=== PATIENT | male | born 1970 | race American Indian/Alaskan Native ===

== ENCOUNTER 2018-09-04 14:37 | Emergency (ER) | payer OTHER ==
[2018-09-04 14:38] VITALS: BMI 37.8
[2018-09-04 14:42] VITALS: BP 152/96; PULSE 65; RESP 20; TEMP 98.2; O2SAT 99
--- NOTE | 2018-09-04 15:01 | C.PDOC ---
History Of Present Illness 48 year old male with PMHx of HTN and DMII presents today for 7 days of white penile discharge. Patient had a similar presentation 1 year ago and was treated, but GC/Chlamydia were negative. Patient is sexually active with two partners and does not use protection. Patient's says his partners' have no complaints. Patient denies any burning, dysuria, hematuria. Patient denies any penile lesions or rashes. Time Seen by Provider: 09/04/18 14:57 Chief Complaint (Nursing): Male Genitourinary History Per: Patient History/Exam Limitations: no limitations Onset/Duration Of Symptoms: Days Current Symptoms Are (Timing): Still Present Associated Symptoms: denies: Fever, Chills, Urinary Symptoms Past Medical History Vital Signs: Last Vital Signs Temp 98.2 F 09/04/18 14:40 Pulse 65 09/04/18 14:40 Resp 20 09/04/18 14:40 BP 152/96 H 09/04/18 14:40 Pulse Ox 99 09/04/18 14:40 - Medical History PMH: Diabetes, HTN Denies: Chronic Kidney Disease Surgical History: Hernia Repair Family History: States: Unknown Family Hx - Social History Hx Tobacco Use: Yes Hx Alcohol Use: No Hx Substance Use: No Review Of Systems Constitutional: Negative for: Fever, Chills Gastrointestinal: Negative for: Nausea, Vomiting, Abdominal Pain Genitourinary: Positive for: Penile Discharge (white). 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, nurse Vivien, present for exam) Neurological/Psych: Oriented x3 ED Course And Treatment O2 Sat by Pulse Oximetry: 99 Medical Decision Making Medical Decision Making: Impression: Male with penile discharge, likely GC/Chlamydia Plan: Azithromycin 1,000mg po and Rocephin 250mg IM given GC/Chlamydia and UA drawn patient stable for discharge Disposition - Disposition Disposition: HOME/ ROUTINE Disposition Time: 15:24 Condition: GOOD Instructions: Sexually Transmitted Diseases (ED), Safe Sex (ED) Forms: [employer] ([place]) - Clinical Impression Clinical Impression: STI (sexually transmitted infection)
[2018-09-04] MEDS ORDERED: cefTRIAXone (Rocephin) 250 mg Inj IM STA (15:09)
[2018-09-04 15:56] LABS: SQUAMOUS EPITHIAL 1 /hpf (0-5); URINE BACTERIA RARE (<OCC); URINE BILIRUBIN NEGATIVE (NEGATIVE); URINE BLOOD 1+ (NEGATIVE); URINE CLARITY Clear (Clear); URINE COLOR Yellow (YELLOW); URINE GLUCOSE (UA) NORMAL (Normal); URINE LEUKOCYTE ESTERASE NEG Leu/uL (Negative); URINE PROTEIN NEGATIVE (NEGATIVE); URINE UROBILINOGEN NORMAL mg/dL (0.2-1.0)
== END 2018-09-04 15:43 | disposition home or self-care (01) ==
LOC: C.ER 14:37
DX: A64 Unspecified sexually transmitted disease (principal)
CPT/HCPCS: 81001; 87491; 87591; 96372; 99284; J0696